=== PATIENT | female | born 1960 | race Caucasian/White ===

== ENCOUNTER → 2017-09-20 | Day surgery (SDC) | payer BC ==
[~2017-09-20] MED LIST: BUPIVACAINE HCL 0.5% INJ 30 ML VIAL INJ ONE; CEFAZOLIN SOD 1 GM VIAL ONE; FENTANYL CITRATE/PF 100MCG/2 ML INJ ONE; LIDOCAINE HCL 1% 2 ML AMP ONE; LIDOCAINE HCL 1% LOCAL INJ 20 ML VIAL ONE; LIDOCAINE HCL 2% LOCAL INJ 5 ML SDV VIAL INJ ONE; LOSARTAN PO; LOSARTAN-HCTZ1 EAC1 PO; MIDAZOLAM HCL 2 MG/2 ML VIAL ONE; MUPIROCIN 2% OINT 22 GM TUBE ONE; PROPOFOL IV EMULSION 10 MG/ML 20 ML VIAL ONE
--- NOTE | 2017-09-20 10:02 | Operative Report ---
DATE OF PROCEDURE: September 20, 2017 PREOPERATIVE DIAGNOSES 1. Heberden's nodes, right index finger distal interphalangeal joint. 2. Mucous cyst, right index finger distal interphalangeal joint. POSTOPERATIVE DIAGNOSES 1. Heberden's nodes, right index finger distal interphalangeal joint. 2. Mucous cyst, right index finger distal interphalangeal joint. PROCEDURES 1. Excision of mucous cyst. 2. Arthrotomy with excision of Heberden's nodes, right index finger distal interphalangeal joint. ANESTHESIA: MAC/local. INDICATIONS: The patient is a 57-year-old, [id number] female with symptomatic degenerative osteoarthritis of the right index finger DIP joint. The risks, benefits and alternatives of treatment were discussed with the patient. She is prepared to undergo the procedures outlined. PROCEDURE: The patient was marked preoperatively in the holding area. She was brought to the operating theater after the induction of adequate IV sedation. A digital block was placed around the base of the right index finger utilizing a 50:50 mixture of 1% Xylocaine plain and 1/2 percent Marcaine plain. A total of 6 mL was used. A time out was then performed. The patient was prepped and draped in a supine position, and a Tourni-Cot was placed around the base of the right index finger. A Y-shaped incision was marked out over the dorsal aspect of the DIP joint. The incision was made through the skin and subcutaneous tissues. Venous tributaries were controlled with bipolar cautery. A mucous cyst was identified, and it was excised by tracing it around the extensor tendon mechanism to the DIP joint. At this point, the Heberden's nodes were identified on the radioulnar aspect of the DIP joint. The extensor tendon mechanism was elevated using a [place] elevator off of the osteophytes, and the osteophytes were then excised using an osteotome and a rongeur. At this point, the sites of the excision were rasped smooth. The extensor tendon was allowed to retract to its [place] position. The wound was irrigated with bacteriostatic saline, and the skin was approximated with 5-0 nylon in interrupted horizontal mattress fashion. The Tourni-Cot was removed. The finger pinked up nicely, and Xeroform gauze, Bactroban ointment and a sterile bulking conforming bandage were applied. Patient tolerated the procedure well was brought to recovery room in satisfactory condition and discharged with a postoperative instruction sheet as well as a followup appointment. Job#: [id number] [email or web address]
== END | disposition home or self-care (01) ==
LOC: OR 05:20
PROVIDERS: ATTEND Plastic Surgery
DX: M15.1 Heberden's nodes (with arthropathy) (principal); M71.341 Other bursal cyst, right hand; I10 Essential (primary) hypertension; G47.30 Sleep apnea, unspecified; Z01.810 Encounter for preprocedural cardiovascular examination
CPT/HCPCS: 26210; 93005; J0690; J2001 ×2; J2250